=== PATIENT | male | born 2005 ===

== ENCOUNTER 2024-04-14 06:11 | Day surgery (SDC) | payer BC, SELFPAY ==
[2024-04-14] VITALS (8 sets, daily range): BP systolic 114–148; BP diastolic 52–84; BMI 24.2
[2024-04-14] MEDS: NORMOSOL-R/PLASMALYTE-A 1000 IV (09:05)
[2024-04-14] MEDS: TYLENOL 650 MG PO (14:01)
== END 2024-04-14 14:15 | disposition home or self-care (01) ==
LOC: SDS 06:11
PROVIDERS: ATTENDING PHYSICIAN Otolaryngology
DX: J34.2 Deviated nasal septum (principal); J33.0 Polyp of nasal cavity
CPT/HCPCS: 31254; 31267; 30520; 88304